=== PATIENT | male | born 1975 | race Caucasian/White ===

== ENCOUNTER 2020-09-17 12:22 | Outpatient (CLI) | payer OTHER, SELFPAY ==
--- NOTE | ~2020-09-17 | XR_ITS ---
XR abdomen/kub 1V DATE: 09/17/2020 12:46 INDICATION: Left-sided abdominal pain. Hematuria. TECHNIQUE: AP projection, 2 views COMPARISON: None FINDINGS: There is an approximately 4 mm calcification overlying the expected position of the distal left ureter or left ureterovesical junction, likely a urinary tract calculus, particularly given the history of left-sided abdominal pain and hematuria. No other significant abnormal calcification is noted. The psoas shadows are intact. There is mild enlargement of the left renal silhouette compared to the right, likely due to left urinary tract obstruction. No evidence of bowel obstruction. IMPRESSION: Probable 4 mm distal left ureteral or ureterovesical junction calcified calculus Reviewed, dictated and finalized at [facility]. Reviewed, dictated and finalized at location A. IMPRESSION: Probable 4 mm distal left ureteral or ureterovesical junction calci fied calculus
== END 2020-09-17 12:23 | disposition home or self-care (01) ==
PROVIDERS: PCP Internal Medicine; Visit Provider Internal Medicine
DX: N39.3 Stress incontinence (female) (male) (principal); R31.9 Hematuria, unspecified
CPT/HCPCS: 74018; 87086

== ENCOUNTER 2020-09-22 14:17 | Outpatient (CLI) | payer OTHER, SELFPAY ==
--- NOTE | ~2020-09-22 | CT_ITS ---
EXAMINATION: CT abdomen pelvis wo con DATE: 09/22/2020 14:50 INDICATION: Renal stone. TECHNIQUE: Computed tomography (CT) of the abdomen and pelvis was performed without intravenous contr ast. The dose-length product was 955.63 mGy-cm. Automated exposure control and iterative reconstructi on technique were employed. COMPARISON: KUB dated 09/17/2020. FINDINGS: Heart size normal. No significant pleural or pericardial effusion. No significant vascular abnormality. No lymphadenopathy. The liver, spleen, pancreas, adrenal glands and kidneys are unremarkable. There is a 5 mm stone at th e right UVJ without significant hydronephrosis. There is a fat-containing umbilical hernia. No abnorm al pelvic masses or fluid collections. Nonobstructive bowel gas pattern. Mild lumbar spondylosis. IMPRESSION: 1. Calcification measuring 5 mm at the right UVJ which may represent a ureteral stone or recently pas sed bladder stone. No significant hydronephrosis. 2: Fat-containing umbilical hernia. Reviewed, dictated and finalized at location A. IMPRESSION: 1. Calcification measuring 5 mm at the right UVJ which may represent a ureteral stone or recently passed bladder stone. No significant hydronephrosis. 2: Fat-containing umbilical hernia.
== END 2020-09-22 14:18 | disposition home or self-care (01) ==
PROVIDERS: PCP Internal Medicine; Visit Provider Internal Medicine
DX: N20.0 Calculus of kidney (principal); K42.9 Umbilical hernia without obstruction or gangrene
CPT/HCPCS: 74176

== ENCOUNTER 2024-04-19 07:00 | Outpatient (NON) | payer OTHER, SELFPAY | END 2024-04-19 07:01 | disposition home or self-care (01) | LOC: ANHLAB 04-20 10:34 | PROVIDERS: PCP Nurse Practitioner Family; Visit Provider Internal Medicine Gastroenterology | DX: D12.2 Benign neoplasm of ascending colon (principal) | CPT/HCPCS: 88305 ==

== ENCOUNTER 2024-04-19 09:42 | Day surgery (SDC) | payer OTHER, SELFPAY ==
[2024-03-12 09:31] VITALS: BMI 36.3
[2024-04-02 14:08] VITALS: BMI 34.7
[2024-04-19 11:05] VITALS: BP 132/84; PULSE 68; RESP 16; TEMP 36.6; O2SAT 98; BMI 35.1
--- NOTE | 2024-04-19 11:07 | PM.HPGS ---
History of Present Illness History of Present Illness Consent: Risks, benefits, and alternatives have been discussed and questions answered. Patient agrees to proceed with procedure. Chief complaint: Screening for Neoplasm of Colon Narrative: Clemente Poe is a 48 year old male presents for screening colonoscopy. Patient's current weight appetite and bowel movements are normal. Patient denies abdominal pain. He has had no bleeding. He has never had colonoscopy prior to this. Review of Systems Review of Systems: All systems reviewed & are unremarkable except as noted in HPI and below PMFSH Past Medical History Medical History (Updated 04/19/24 @ 11:08 by Art Rodriguez MD) Anxiety Benign essential hypertension COVID-19 05/07(second infection) Hyperlipidemia, unspecified YAMILA (obstructive sleep apnea) Type 2 diabetes mellitus without complication, without long-term current use of insulin Surgical History Surgical History History of surgical removal of lesion History of tonsillectomy Family History Family History Mother Hypertension Father Family history of anemia Social History Social History Smoking status: Never smoker Second hand tobacco smoke exposure: No Alcohol intake: current Drinks per week: 1 Alcohol use details: Social Substance use: never Substance use type: does not use Lack of Transportation: No Lack of Food: Never True Current Housing: I Have Housing Concerned About Future Housing: No Difficulty Paying Gas/Electric Bills: No Difficulty Paying for Meds: No Currently Unemployed: No Education: Bachelor's Degree Difficulty w/ Childcare or Family Care: No Living arrangements: alone Spiritual care concerns: No Meds Home Medications and Allergies Home Medications Medication Instructions Recorded Confirmed Type clotrimazole 1 % topical cream 1 applic topical Q12H #30 grams 11/05/21 04/19/24 Rx acyclovir 5 % topical ointment 1 applic topical 6XD PRN cold 12/31/21 04/19/24 Rx sores 7 days #30 grams acyclovir 400 mg tablet 400 mg PO TID PRN FLARE UP 03/28/23 04/19/24 History tirzepatide 5 mg/0.5 mL 5 mg (0.5 mL) subcut WEEKLY #6 mL 12/07/23 04/19/24 Rx subcutaneous pen injector (Frederickunana) amlodipine 5 mg tablet See Rx Instructions .Route 02/23/24 04/19/24 Rx .COMPLEX #90 tabs atorvastatin 20 mg tablet See Rx Instructions .Route 02/23/24 04/19/24 Rx .COMPLEX #90 tabs empagliflozin 25 mg tablet See Rx Instructions .Route 02/23/24 04/19/24 Rx (Jardiance) .COMPLEX #90 tabs losartan 50 mg tablet See Rx Instructions .Route 02/23/24 04/19/24 Rx .COMPLEX #90 tabs metformin 1,000 mg tablet See Rx Instructions .Route 02/23/24 04/19/24 Rx .COMPLEX #180 tabs sodium,potassium,mag sulfates 17.5 See Rx Instructions PO .COMPLEX 03/09/24 04/19/24 Rx gram-3.13 gram-1.6 gram oral soln #354 mL (Suprep Bowel Prep Kit) Allergies Allergy/AdvReac Type Severity Reaction Status Date / Time latex Allergy Mild Rash Verified 04/19/24 10:46 Exam Narrative: Physical exam reveals patient to be alert. Vital signs stable. HEENT exam is unremarkable. Patient is anicteric. Lungs are clear to auscultation and to percussion. Heart is without murmur or extra sounds. Abdomen bowel sounds are present soft nontender with no organomegaly. Digital external rectal exam normal. Assessment and Plan Assessment and plan (1) Screen for colon cancer: Code(s): Z12.11 - Encounter for screening for malignant neoplasm of colon Status: Acute Assessment and Plan: Presents today for screening colonoscopy. Further recommendations may be given after endoscopy.
[2024-04-19] MEDS: LACTATED RINGERS 1,000 ML 150 ML IV CONT (11:09)
--- NOTE | 2024-04-19 11:11 | WPDANESEPPF ---
Anes - Initial Pre Proc Eval Procedure: Operation Date: 04/19/24 12:00 Proposed Procedures p Screening Colonoscopy - Art Rodriguez MD Date/Time: 04/19/24 11:11 Surgeon: Art Rodriguez MD Pre Op Diagnosis: Screening for Neoplasm of Colon Patient Data Age: 48 Gender: M Height: 1.83 m Weight: 117.4 kg Last Vital Signs Temp 36.6 C 04/19/24 11:05 Pulse 68 04/19/24 11:05 Resp 16 04/19/24 11:05 BP 132/84 04/19/24 11:05 Pulse Ox 98 04/19/24 11:05 O2 Del Method Room Air 04/19/24 11:05 Allergies Allergy/AdvReac Type Severity Reaction Status Date / Time latex Allergy Mild Rash Verified 04/19/24 10:46 Home Medications Medication Instructions Recorded Confirmed Type clotrimazole 1 % topical cream 1 applic topical Q12H #30 grams 11/05/21 04/19/24 Rx acyclovir 5 % topical ointment 1 applic topical 6XD PRN cold 12/31/21 04/19/24 Rx sores 7 days #30 grams acyclovir 400 mg tablet 400 mg PO TID PRN FLARE UP 03/28/23 04/19/24 History tirzepatide 5 mg/0.5 mL 5 mg (0.5 mL) subcut WEEKLY #6 mL 12/07/23 04/19/24 Rx subcutaneous pen injector (Trevor) amlodipine 5 mg tablet See Rx Instructions .Route 02/23/24 04/19/24 Rx .COMPLEX #90 tabs atorvastatin 20 mg tablet See Rx Instructions .Route 02/23/24 04/19/24 Rx .COMPLEX #90 tabs empagliflozin 25 mg tablet See Rx Instructions .Route 02/23/24 04/19/24 Rx (Jardiance) .COMPLEX #90 tabs losartan 50 mg tablet See Rx Instructions .Route 02/23/24 04/19/24 Rx .COMPLEX #90 tabs metformin 1,000 mg tablet See Rx Instructions .Route 02/23/24 04/19/24 Rx .COMPLEX #180 tabs sodium,potassium,mag sulfates 17.5 See Rx Instructions PO .COMPLEX 03/09/24 04/19/24 Rx gram-3.13 gram-1.6 gram oral soln #354 mL (Suprep Bowel Prep Kit) Patient hx anesthesia problems: none Family hx anesthesia problems: none Results Review: All pre-operative results and documents have been reviewed as part of the pre-operative evaluation. [facility] Past Medical History Medical History (Updated 04/19/24 @ 11:08 by Art Rodriguez MD) Anxiety Benign essential hypertension COVID-19 12/2(second infection) Hyperlipidemia, unspecified YAMILA (obstructive sleep apnea) Type 2 diabetes mellitus without complication, without long-term current use of insulin Surgical History Surgical History History of surgical removal of lesion History of tonsillectomy Family History Family History Mother Hypertension Father Family history of anemia Social History Social History Smoking status: Never smoker Second hand tobacco smoke exposure: No Alcohol intake: current Drinks per week: 1 Alcohol use details: Social Substance use: never Substance use type: does not use Lack of Transportation: No Lack of Food: Never True Current Housing: I Have Housing Concerned About Future Housing: No Difficulty Paying Gas/Electric Bills: No Difficulty Paying for Meds: No Currently Unemployed: No Education: Bachelor's Degree Difficulty w/ Childcare or Family Care: No Living arrangements: alone Spiritual care concerns: No Anes - Eval Final PreProcedure Day of Procedure 04/19/24 11:11 Patient weight: obese Heart: regular rate and rhythm Lungs: clear to auscultation Airway: Mallampati scale class II Neurological: alert and oriented Last oral intake: >/= 8 hours ASA classification: III Emergent: no Anesthetic plan: proceed Anesthesia type and monitoring: general GIVS and standard monitoring Results Review: All pre-operative results and documents have been reviewed as part of the pre-operative evaluation. Informed Consent: The patient's anesthetic plan and its attendant risks and benefits were discussed with the patient/family/POA. Questions were solicited and answers provided to the satisfaction of the patient/family/POA.
[2024-04-19 12:01] VITALS: BP 95/47; PULSE 69; RESP 18; O2SAT 94
[2024-04-19 12:11] VITALS: BP 98/60; PULSE 67; RESP 16; O2SAT 95
[2024-04-19 12:21] VITALS: BP 105/67; PULSE 65; RESP 15; O2SAT 98
[2024-04-19 12:31] LABS: Glucose Point of Care 84 mg/dl (65-105)
--- NOTE | 2024-04-19 12:58 | WPDANESPN ---
Anes - Prog Note Post-Op Date/Time: 04/19/24 12:58 Cardiovascular status: normal Respiratory status: normal Airway patency: baseline Mental status: baseline Post-Op hydration status: normal Vital Signs: Last Vital Signs Temp 36.6 C 04/19/24 11:05 Pulse 65 04/19/24 12:21 Resp 15 04/19/24 12:21 BP 105/67 04/19/24 12:21 Pulse Ox 98 04/19/24 12:21 O2 Del Method Room Air 04/19/24 12:21 Pain Score (VAS): 0 I/O: Intake & Output 04/18/24 04/19/24 04/19/24 23:59 07:59 15:59 Intake Total 300 Balance 300 04/19/24 11:02 POC Capillary Glucose 84 Post-procedural complaints: none Patient Feedback: Patient satisfied with anesthetic care. Other Findings: Patient vital signs back to baseline. Patient denies nausea and vomiting. Patient's pain under control. Patient OK for discharge.
== END 2024-04-19 12:36 | disposition home or self-care (01) ==
PROVIDERS: PCP Nurse Practitioner Family; Visit Provider Internal Medicine Gastroenterology
PROC: 0DJD8ZZ Inspection of Lower Intestinal Tract, Via Natural or Artificial Opening Endoscopic (ICD-10-PCS; CPT 45378; principal; 2024-04-19 12:00)
DX: Z12.11 Encounter for screening for malignant neoplasm of colon (principal); D12.2 Benign neoplasm of ascending colon; K64.8 Other hemorrhoids
CPT/HCPCS: 45385

== ENCOUNTER 2024-08-25 12:42 | Outpatient (CLI) | payer OTHER, SELFPAY ==
--- NOTE | ~2024-08-25 | MR_ITS ---
EXAMINATION: MR shoulder RT wo con DATE: 08/25/2024 13:47 INDICATION: Right shoulder pain TECHNIQUE: Magnetic resonance imaging (MRI) of the right shoulder was performed without intravenous c ontrast. Sequences included axial PD-weighted FS FSE, coronal oblique PD-weighted FS FSE, coronal obl ique T2-weighted FS FSE, sagittal PD-weighted FS FSE, and sagittal T1-weighted SE. COMPARISON: None. FINDINGS: There is moderate motion artifact on the sagittal T2-weighted sequence. Minimal to mild motion on the remaining sequences. Coracoacromial arch: The acromion undersurface is curved in morphology (type II). The coracoacromial ligament is normal. M ild acromioclavicular osteoarthritis. Rotator cuff: The supraspinatus, infraspinatus and teres minor tendons are normal. Subscapular tendon is normal. No rmal rotator cuff muscle bulk and signal. Biceps tendon, glenoid labrum and glenohumeral cartilage: Long head of the biceps tendon is normal. Glenoid labrum is normal. Glenohumeral cartilage is normal. Fluid: Physiologic amount of fluid in the glenohumeral joint and biceps tendon sheath. No loose osteochondr al bodies. 1.8 x 1.0 x 0.6 cm ganglion cyst arising from the region of the rotator cuff interval and extending cephalad along the posterolateral margin of the neck of the coracoid process. No abnormal f luid signal in the subacromial/subdeltoid bursa consistent with mild bursitis. Bones/other: Normal marrow signal with no edema, fracture or abnormal marrow replacing process. There is thickenin g of the capsule at the axillary recess along with increased soft tissue density at the rotator cuff interval, both findings which can be seen in the setting of capsulitis which is ultimately a clinical diagnosis. IMPRESSION: 1. Thickened capsule at the axillary recess and increased soft tissue at the rotator cuff interval, b oth findings which can be seen in the setting of adhesive capsulitis which is a clinical diagnosis. 2. Ganglion cyst arising from the rotator cuff interval and extending along the posterolateral margin of the coracoid process. Reviewed, dictated and finalized at location B. IMPRESSION: 1. Thickened capsule at the axillary recess and increased soft tissue at the ro tator cuff interval, both findings which can be seen in the setting of adhesive capsulitis which is a clinical diagnosis. 2. Ganglion cyst arising from the rotator cuff interval and extending along the posterolateral margin of the coracoid process.
--- OUTSIDE RECORDS SUMMARY | 2024-08-25 12:45 | XMS_ITS | Clinical Summary ---
Author Organization [facility] Address [address] [place] [id number] Care Team Providers Care Operations And Maintenance Manager Name Role Phone Aletha Reese NP Primary Care Provider [phone] Allergies No known active allergies Medications tirzepatide (Mounjaro) 5 mg/0.5 mL pen injector Inject 5 mg under the skin every 7 days Active atorvastatin (LIPITOR) 20 mg tablet Take 1 tablet (20 mg total) by mouth rn diabetes educator before breakfast Active losartan (COZAAR) 50 mg tablet Take 1 tablet (50 mg total) by mouth daily Active amLODIPine (NORVASC) 5 mg tablet Take 1 tablet (5 mg total) by mouth daily Active empagliflozin (JARDIANCE) 25 mg tablet Take 1 tablet (25 mg total) by mouth daily Active metFORMIN (GLUCOPHAGE) 1,000 mg tablet Take 1 tablet (1,000 mg total) by mouth 2 (two) times a day with meals Active clotrimazole 1 % cream Apply 1 Application topically as needed (Jock itch) Active Active Problems Problem Noted Date Diagnosed Date Keratosis, senilis 10/12/2016 Infectious warts 10/12/2016 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 Lentigo 02/14/2015 Immunizations Immunization Administration Dates Next Due Influenza, Trivalent, Cell C ulture-based MDCK, Preservative Free, Antibiotic Free, Intramuscular 04/12/2024 Family History Medical History Relation Name Comments Hyperlipidemia Father High choleste rol - (Added by TW Conv) Hypertension Father Family history of hypertension - (Added by TW Conv) Kidney disease Maternal Grandmother Famil y history of kidney disease - (Added by TW Conv) Hyperlipidemia Mother High choleste rol - (Added by TW Conv) Hypertension Mother Family history of hypertension - (Added by TW Conv) Relation Name Status Comments Father Maternal Grandmother Mother Social History Tobacco Use Types Packs/Day Years Used Date Smoking Tobacco: Never Smokeless Tobacco: Never Tobacco Cessation:Counseling Given: Not Answered Sex and Gender Information Value Date Recorded Sex Assigned at Not on file 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 Gender Identity Not on file Sexual Orientation Not on file Obstetrics History Plan of Treatment Health Maintenance Due Date Last Done Comments Colon Cancer Screening-Colonoscopy 1975 Depression Screening 1975 Hepatitis C Screening 1975 DTaP/Tdap/Td Vaccine (1 - Tdap) 09/30/1986 Hepatitis B Screening 09/30/1993 Regular Well Visit/Exam 18-64 09/30/1993 Covid-19 Vaccine ( season) 2024 03/22/2023, 05/08/2021, 07/11/2020, Additional history exists Influenza Vaccine Completed 04/12/2024 Pneumococcal vaccine <65 Aged Out No longer eligible based on patient's age to complete this topic [place] [address] [employer] Care Teams Operations And Maintenance Manager Relationship Specialty Start Date End Date Aletha Reese NP [address] [facility] [address] [place] [address] PCP - General Nurse Practitioner 04/17/24
--- OUTSIDE RECORDS SUMMARY | 2024-08-25 12:45 | XMS_ITS | Referral Summary ---
Author Organization [facility] Address [address] [place] [phone] Care Team Providers Care Chief Arson Division Name Role Phone Aletha Reese NP Primary Care Provider [phone] Allergies No known active allergies Medications tirzepatide (Mounjaro) 5 mg/0.5 mL pen injector Inject 5 mg under the skin every 7 days Active atorvastatin (LIPITOR) 20 mg tablet Take 1 tablet (20 mg total) by mouth geriatric physician before breakfast Active losartan (COZAAR) 50 mg [...] MDCK, Preservative Free, Antibiotic Free, Intramuscular 04/12/2024 Social History Tobacco Use Types Packs/Day Years Used Date Smoking Tobacco: Never Smokeless Tobacco: Never Tobacco Cessation:Counseling Given: Not Answered Sex and Gender Information Value Date Recorded Sex Assigned at Not on file 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
== END 2024-08-25 12:43 | disposition home or self-care (01) ==
PROVIDERS: PCP Nurse Practitioner Family; Visit Provider Nurse Practitioner Family
DX: M25.511 Pain in right shoulder (principal)
CPT/HCPCS: 73221

== ENCOUNTER 2025-02-19 08:53 | Outpatient (CLI) | payer OTHER, SELFPAY ==
--- OUTSIDE RECORDS SUMMARY | 2025-02-19 10:01 | XMS_ITS | Clinical Summary ---
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 Gender Identity Not on file Sexual Orientation Not on file Obstetrics History Plan of Treatment Health Maintenance Due Date Last Done Comments Colon Cancer Screening-Colonoscopy 1975 Depression Screening 1975 Hepatitis C Screening 1975 DTaP/Tdap/Td Vaccine (1 - Tdap) 09/30/1986 Hepatitis B Screening 09/30/1993 Regular Well Visit/Exam 18-64 09/30/1993 Covid-19 Vaccine ( season) 2025 03/22/2023, 05/08/2021, 07/11/2020, Additional history exists Influenza Vaccine (#1) 2025 04/12/2024 Pneumococcal vaccine <65 Aged Out No longer eligible based on patient's age to complete this topic Insurance [address] [employer]YE[employer] H[employer]/PPO Address: [facility] [address] [place] [address] [employer] H[employer]/PPO Address: [address] [address] Care Teams Locomotive Repairer Diesel Relationship Specialty Start Date End Date Aletha Reese NP [address] [place] [address] PCP - General Nurse Practitioner 04/17/24
--- NOTE | 2025-03-12 15:04 | WPDHOMESLEEP ---
Sleep Study - Home Unattended Date of Study: 02/19/25 Ordering Provider: Aletha Reese APRN Interpreting Provider: Jennifer Teague, DO Home Sleep Study Type: Watch ELSI Height: 1.83 m Weight: 118.841 kg Body Mass Index: 35.5 Neck Circumference (inches): 17.5 [place]: 10 Reason for Sleep Study Daytime hypersomnia Sleep History The patient is a 49-year-old male that had a sleep study ordered by his primary care for evaluation of sleep apnea. The patient occasionally awakens from sleep short of breath. He rarely awakens at night with heartburn, belching or cough. He frequently snores but is rarely loud enough that others complain. He frequently has trouble sleeping when he has a cold. He rarely wakes up gasping for air throughout the night. He occasionally has breathing problems at night observed by himself or others. He rarely sweats excessively at night. He denies having heart palpitations or irregular heartbeats during the night. He occasionally falls asleep during the day but rarely while driving. He denies sleep paralysis and cataplexy. He denies having trouble at school or work due to sleepiness. He rarely experiences vivid dreamlike scenes upon awakening or falling asleep. He denies feeling afraid of going asleep. He denies having nightmares. He rarely remembers his dreams. He frequently has thoughts racing through his mind. He rarely feels sad or depressed. He occasionally has anxiety. He rarely has muscular tension. He rarely notices parts of his body jerk. He denies kicking during the night. He denies having crawling and aching feelings in his legs and denies having leg pain during the night. He occasionally grinds his teeth during sleep but rarely awakens with morning jaw pain. He is rarely bothered by pain during the day and never awakened by pain during the night. He rarely wakes up feeling stiff in the morning. He rarely wakes up with sore or achy muscles. He rarely wakes up with pain in the neck, spine and other joints. He goes to bed at 10:00 p.m. on weekdays and between 11:00 p.m. to midnight on the weekends. It takes him a few minutes to fall asleep. He wakes up 1-2 times throughout the night to urinate and he can take 5-60 minutes to fall back asleep. He wakes up at 6:30 a.m. on weekdays and at 7:30 a.m. on the weekends. He typically gets 6-7 hours of sleep per night. He will stay in bed for 5-10 minutes after waking up in the morning. He currently lives with his and 2 children. Denies consuming any caffeinated beverages within 2 hours of bedtime. He denies engaging in physical exercise before bedtime. He will watch television before falling asleep. He denies taking naps in afternoon with the evening. He consumes 1 caffeinated beverage 3 times per week. He denies tobacco use. He consumes 5-6 alcoholic beverages during the weekend. He denies recreational drug use. [facility] Past Medical History Medical History (Updated 03/12/25 @ 15:11 by Jennifer Teague DO) YAMILA (obstructive sleep apnea) COVID-19 05/07(second infection) Anxiety Benign essential hypertension Hyperlipidemia, unspecified Type 2 diabetes mellitus without complication, without long-term current use of insulin Surgical History Surgical History History of surgical removal of lesion History of tonsillectomy Family History Family History Mother Hypertension Father Family history of anemia Social History Social History Smoking status: Never smoker Second hand tobacco smoke exposure: No Alcohol intake: current Drinks per week: 1 Alcohol use details: Social Substance use: never Substance use type: does not use Lack of Transportation: No Lack of Food: Never True Current Housing: I Have Housing Concerned About Future Housing: No Difficulty Paying Gas/Electric Bills: No Difficulty Paying for Meds: No Currently Unemployed: No Education: Bachelor's Degree Difficulty w/ Childcare or Family Care: No Living arrangements: alone Occupation/Education: occupation Gender identity (if verbalized by the patient): Male Spiritual care concerns: No Agree to blood products: Yes Medications Home Medications ?Medication ?Instructions ?Recorded ?Confirmed ?Type amlodipine 5 mg tablet See Rx Instructions .Route 11/22/24 02/05/25 Rx .COMPLEX #90 tabs atorvastatin 20 mg tablet See Rx Instructions .Route 11/22/24 02/05/25 Rx .COMPLEX #90 tabs acyclovir 400 mg tablet 400 mg PO TID PRN FLARE UP #90 tabs 12/17/24 02/05/25 Rx clotrimazole 1 % topical cream 1 applic topical Q12H #30 grams 12/17/24 02/05/25 Rx losartan 50 mg tablet See Rx Instructions .Route 12/17/24 02/05/25 Rx .COMPLEX #90 tabs metformin 1,000 mg tablet See Rx Instructions .Route 12/17/24 02/05/25 Rx .COMPLEX #180 tabs tirzepatide 7.5 mg/0.5 mL 7.5 mg (0.5 mL) subcut WEEKLY #6 mL 12/17/24 02/05/25 Rx subcutaneous pen injector naproxen 500 mg tablet 500 mg PO BID #60 tabs 02/05/25 02/05/25 Rx Sleep Procedure The sleep study was completed using [id number] DigitalT a technically adequate device with seven channels: peripheral arterial tone, actigraphy, body position, snore, respiratory movement, pulse oximetry, sleep staging, and heart rate. Prior to using the device, the patient received verbal and written instructions for its application and was provided with the help desk phone number for additional telephonic instruction with 24-hour availability of qualified personnel to answer questions. The study was scored using CMS guidelines. Sleep Architecture The total recording time is 8 hrs, 37 min. The total sleep time is 7 hrs, 43 min. Sleep latency is 6 minutes. REM latency is 86 minutes. The patient had 10 episodes of waking. Sleep architecture shows 14.5% deep sleep, 66.3% light sleep, and (as % Total Sleep Time) showed NREM (Light 66.3%; Deep 14.5%), and a 19.2% stage REM. The patient spent 56.6% of total sleep time in the supine position. Sleep efficiency was 89.56. Respiratory Analysis The overall AHI (pAHI 4%:) is 19.1. The overall AHI (pAHI 3%:) is 25.5. The central AHI is 5.8. The AHI was 21.6 in NREM and 41.2 in REM sleep. The AHI was 37.3 in Supine and 9.9 in Non-supine sleep. Percent of Roderick Matias respirations is 0.0. Oximetry Data The oxygen desaturation index (SUMMER 4%:) is 15.1. The mean saturation is 94%, and the lowest saturation is 78%. Time spent with saturation < 88% is 4.6 minutes. Snoring Profile Snoring average intensity is 41 dB. The patient snored above 45 decibels for 23.3 minutes, 5.0% of sleep time. Cardiac Profile The average pulse rate is beats per 68 minutes. The lowest pulse rate is 56 bpm. The highest pulse rate reported is 103 bpm. Atrial fibrillation was not detected. Premature beats occur <0.1 per minute. Assessment and Plan Assessment and Plan (1) YAMILA (obstructive sleep apnea): Code(s): G47.33 - Obstructive sleep apnea (adult) (pediatric) Status: Acute Assessment and Plan: The patient had an overall AHI of 19.1 with desaturation down to 78%. This is consistent with moderate sleep apnea. The patient had a central apnea index of 5.8, which is elevated (normal <5). The patient is not an ideal candidate for AutoPAP. AutoPAP can increase the frequency and severity of central apneas. I recommend that the patient have a CPAP Titration with the use of a hypnotic to ensure we obtain enough sleep data and find an optimal pressure setting. The patient needs an echocardiogram to rule out cardiogenic causes for an elevated central index. Data The data obtained during this sleep study is adequate for interpretation. Certification This sleep study has been reviewed by a board certified sleep medicine physician.
[2025-03-13 13:08] VITALS: BMI 35.5
== END 2025-02-20 14:23 | disposition home or self-care (01) ==
LOC: ANHCSM 08:57
PROVIDERS: PCP Nurse Practitioner Family; Visit Provider Nurse Practitioner Family
DX: G47.33 Obstructive sleep apnea (adult) (pediatric) (principal); I10 Essential (primary) hypertension
CPT/HCPCS: 95800

== ENCOUNTER 2025-04-16 10:07 | Outpatient (CLI) | payer OTHER, SELFPAY ==
--- OUTSIDE RECORDS SUMMARY | 2025-04-16 10:39 | XMS_ITS | Clinical Summary ---
Author Organization [facility] Address [address] [place] [address] Care Team Providers Care Instrument Assembly Supervisor Name Role Phone Aletha Reese NP Primary Care Provider [phone] Allergies No known active allergies Medications * This document contains information received from the source organization and may not represent a complete record from that organization. tirzepatide (Mounjaro) 5 mg/0.5 mL pen injector Inject 5 mg under the skin every 7 days Active atorvastatin (LIPITOR) 20 mg tablet Take 1 tablet (20 mg total) by mouth truck technician before breakfast Active losartan (COZAAR) 50 mg [...] ulture-based MDCK, Preservative Free, Antibiotic Free, Intramuscular 03/07/2025,04/12/2024 Family History Medical History Relation Name Comments [...] on file Legal Sex Male 4:40 AM [employer] Gender Identity Not on file Sexual Orientation Not on file Plan of Treatment Health Maintenance Due Date Last Done Comments Colon Cancer Screening-Colonoscopy 1975 Depression Screening 1975 Hepatitis C Screening 1975 DTaP/Tdap/Td Vaccine (1 - Tdap) 09/30/1986 Hepatitis B Screening 09/30/1993 Regular Well Visit/Exam 18-64 09/30/1993 Covid-19 Vaccine ( season) 2025 03/22/2023, 05/08/2021, 07/11/2020, Additional history exists Influenza Vaccine Completed 03/07/2025, 04/12/2024 Pneumococcal vaccine <65 Aged Out No longer eligible based on patient's age to complete [place] [address] [facility] [facility] [address] [employer] Care Teams Instrument Assembly Supervisor Relationship Specialty Start Date End Date WinterAletha NP [address] [place] [address] PCP - General Nurse Practitioner 04/17/24
--- NOTE | 2025-05-13 15:09 | WPDSLEEPSTUD ---
Sleep Study Date of Study: 04/16/25 Ordering Provider: Aletha Reese APRN Interpreting Physician: Alecia Boles MD Sleep Study Type: CPAP Titration Height: 1.85 m Weight: 113.398 kg Body Mass Index: 33.0 Neck Circumference (inches): 18 [place]: 10 Reason for Sleep Study 02/19/2025 home sleep test showing moderate obstructive sleep apnea, AHI 19.1, desaturaiton to 78%, central AHI 5.58 Pateint returns for a full night CPAP titraiton. Sleep History This sleep history is from his 02/19/2025 home sleep test. Clemente Poe is 49-year-old man with hypersomnia who had a home sleep test 02/19/2025. This showed moderate obstructive sleep apnea with an overall AHI 19.1, mild central sleep apnea central AHI 5.8, desaturation down to 78%. He is here for a CPAP titration. I do not see an echo which was recommended when he had an elevation in his central apnea index. He occasionally awakens from sleep short of breath. He rarely awakens at night with heartburn, belching or cough. He frequently snores but is rarely loudly enough that others complain. He frequently has trouble sleeping when he has a cold. He rarely wakes up gasping for air in the night. He occasionally has breathing problems at night observed by others. He rarely sweats excessively at night. He denies having heart palpitations or irregular heartbeats during the night. He occasionally falls asleep during the day but rarely while driving. He denies sleep paralysis and cataplexy. He denies having trouble at school or work due to sleepiness. He rarely experiences vivid dreamlike scenes upon awakening or falling asleep. He denies feeling afraid of going asleep. He denies having nightmares. He rarely remembers his dreams. He frequently has thoughts racing through his mind. He rarely feels sad or depressed. He occasionally has anxiety. He rarely has muscular tension. He rarely notices parts of his body jerk. He denies kicking during the night. He denies having crawling and aching feelings in his legs and denies having leg pain during the night. He occasionally grinds his teeth during sleep but rarely awakens with morning jaw pain. He is rarely bothered by pain during the day and never awakened by pain during the night. He rarely wakes up feeling stiff in the morning. He rarely wakes up with sore or achy muscles. He rarely wakes up with pain in the neck, spine and other joints. He goes to bed at 10:00 p.m. on weekdays and between 11:00 p.m. to midnight on the weekends. It takes him a few minutes to fall asleep. He wakes up 1-2 times throughout the night to urinate and he can take 5-60 minutes to fall back asleep. He wakes up at 6:30 a.m. on weekdays and at 7:30 a.m. on the weekends. He typically gets 6-7 hours of sleep per night. He will stay in bed for 5-10 minutes after waking up in the morning. He currently lives with his and 2 children. Denies consuming any caffeinated beverages within 2 hours of bedtime. He denies engaging in physical exercise before bedtime. He will watch television before falling asleep. He denies taking naps in afternoon with the evening. He consumes 1 caffeinated beverage 3 times per week. He denies tobacco use. He consumes 5-6 alcoholic beverages during the weekend. He denies recreational drug use. [facility] Past Medical History Medical History YAMILA (obstructive sleep apnea) COVID-19 05/07(second infection) Anxiety Benign essential hypertension Hyperlipidemia, unspecified Type 2 diabetes mellitus without complication, without long-term current use of insulin Surgical History Surgical History History of surgical removal of lesion History of tonsillectomy Family History Family History Mother Hypertension Father Family history of anemia Social History Social History Smoking status: Never smoker Second hand tobacco smoke exposure: No Alcohol intake: current Drinks per week: 1 Alcohol use details: Social Substance use: never Substance use type: does not use Lack of Transportation: No Lack of Food: Never True Current Housing: I Have Housing Concerned About Future Housing: No Difficulty Paying Gas/Electric Bills: No Difficulty Paying for Meds: No Currently Unemployed: No Education: Bachelor's Degree Difficulty w/ Childcare or Family Care: No Living arrangements: alone Occupation/Education: occupation Gender identity (if verbalized by the patient): Male Spiritual care concerns: No Agree to blood products: Yes Medications Home Medications ?Medication ?Instructions ?Recorded ?Confirmed ?Type amlodipine 5 mg tablet See Rx Instructions .Route 11/22/24 02/05/25 Rx .COMPLEX #90 tabs atorvastatin 20 mg tablet See Rx Instructions .Route 11/22/24 02/05/25 Rx .COMPLEX #90 tabs acyclovir 400 mg tablet 400 mg PO TID PRN FLARE UP #90 tabs 12/17/24 02/05/25 Rx clotrimazole 1 % topical cream 1 applic topical Q12H #30 grams 12/17/24 02/05/25 Rx losartan 50 mg tablet See Rx Instructions .Route 12/17/24 02/05/25 Rx .COMPLEX #90 tabs metformin 1,000 mg tablet See Rx Instructions .Route 12/17/24 02/05/25 Rx .COMPLEX #180 tabs tirzepatide 7.5 mg/0.5 mL 7.5 mg (0.5 mL) subcut WEEKLY #6 mL 12/17/24 02/05/25 Rx subcutaneous pen injector naproxen 500 mg tablet 500 mg PO BID #60 tabs 02/05/25 02/05/25 Rx Sleep Procedure A full CPAP polysomnogram using the [employer] multi-channel system recorded the standard physiologic parameters including EEG, EOG, submentalis EMG, anterior tibialis EMG, EKG, body position, nasal and oral airflow using nasal pressure sensor and thermistor. Respiratory parameters of chest and abdominal movements were recorded with Respiratory Inductance Plethysmography belts. Oxygen saturation was recorded by pulse oximetry. Video monitoring was also performed. Sleep stages, periodic limb movements, and EEG arousals were scored in 30 second epochs according to the criteria of the AASM Scoring Manual. The Apnea-Hypopnea Index was calculated using CMS guidelines for definition of hypopnea while scoring respiratory events. The patient was started on CPAP using a medium ResMed AirFit N30 i nasal mask and heated humidity, initial pressure was CPAP 5 cm, titrated in 1 cm increments up to CPAP 14 cm. Patient had supine REM at CPAP 13 and 14 cm. At CPAP 13 cm, the patient spent 66.5 minutes in bed, 2.5 minutes awake, 44.5 minutes in non-REM, 19.5 minutes in REM. Sleep efficiency was 96.2%. The residual apnea-hypopnea index was 2.8, this was 2-3 hypopneas. The lowest saturation was 93%. The patient had supine REM at this setting. At CPAP 14 cm, sleep was very fragmented, constant shifts between wake, stage I and stage II. Sleep Architecture The total recording time was 456.6 minutes. The total sleep time was 411.5 minutes. Sleep latency was 2.9 minutes. REM latency was 75.0 minutes. Sleep efficiency was 90.1%. The patient had 35 awakenings for an awakening index of 5.1. Wake after Sleep Onset time was 42.5 minutes. The patient spent 36.5 minutes, 8.9% of total sleep time in Stage N1. The patient spent 245.0 minutes, 59.5% in Stage N2. The patient spent 52.5 minutes, 12.8% in Stage N3. The patient spent 77.5 minutes, 18.8% in Stage REM. Respiratory Analysis The patient had 31 hypopneas, no obstructive apneas, 1 mixed apnea, and no central apneas for an overall Apnea Hypopnea Index of 4.7 events per hour. The REM Apnea Hypopnea Index was 11.6. The NREM Apnea Hypopnea Index was 3.1. The patient had a Central Apnea Hypopnea Index of 0. There were no Respiratory Effort Related Arousals. The Respiratory Disturbance Index is 10.5 events per hour. There was no evidence of Roderick-Matias Respirations. Arousals There were 197 total arousals for an arousal index of 28.7. There were 72 spontaneous arousals for an index of 10.5. There were 21 arousals due to respiratory events for an index of 3.1. There were 61 arousals due to periodic limb movements for an index of 8.9. There were 44 arousals due to isolated limb movements for an index of 6.4 Periodic Limb Movements The patient had 114 isolated limb movements with an index of 16.6. The patient had 196 periodic limb movements with index of 28.6. Patient had a total of 310 limb movements with a total limb movement index of 45.2. Oximetry Data The patient had an average oxygen saturation of 94.8% in sleep with a minimum oxygen saturation of 88% and a maximum oxygen saturation of 99%. The patient had 32 oxygen desaturations that were 4% or greater resulting in an Oxygen Desaturation Index of 4.7. The patient spent 0.1 minutes, 0% of total sleep time with an oxygen saturation below 88%. Snoring Profile Snoring was mild, eliminated at the optimal pressure. Cardiac Profile The EKG showed normal sinus rhythm. The patient had an average pulse rate of 68.5 bpm with a minimum pulse rate of 57 bpm and a maximum pulse rate of 99 bpm. No arrhythmias noted. EEG Profile Unremarkable, no evidence of seizures. Assessment and Plan Assessment and Plan (1) YAMILA (obstructive sleep apnea): Code(s): G47.33 - Obstructive sleep apnea (adult) (pediatric) Status: Acute Assessment and Plan: This full night CPAP titration on April 16, 2025 showed an optimal pressure of CPAP 13 cm using a medium ResMed AirFit N30 i nasal mask and heated humidity. At CPAP 13 cm, he spent 66.5 minutes in bed, 2.5 minutes awake, 44.5 minutes in non-REM, 19.5 minutes in REM. Sleep efficiency was 96.2%. The residual apnea-hypopnea index was 2.8, he had 3 hypopneas. The lowest saturation was 93%. The patient had supine REM at this setting. The patient should be prescribed this ResMed equipment as well as tubing, filters and reservoir. This should be used with all episodes of sleep. Compliance should be reviewed within 31-90 days of starting therapy for usage greater than 4 hours per night greater than 70% of the nights. The patient should be asked about symptoms such as excessive daytime sleepiness, quality of sleep, decreased nocturia, increased mental functioning such as memory, mood, and concentration. He had excessive numbers of limb movements, however a small fration of leg movements led to arousals during sleep. He has no complaints of sleep interruptions due to kicking or feelings of uncomfortable sensations in his legs at night. He clinically does not have problems with leg movements. These leg movements seen during this titration may be due to the titration at self, CPAP kick. I would not recommend any intervention at this point, and bees excessive limb movements may disappear when he acclimate to PAP over the next month or 2 months. BMI is 33. Weight management is advised. Clinical data suggests that weight loss of 10% can reduce the severity of respiratory events and snoring and improve AHI by as much as 25%. Data The data obtained during this sleep study is adequate for interpretation. Certification This sleep study has been reviewed by a board certified sleep medicine physician.
[2025-05-13 17:35] VITALS: BMI 33.0
== END 2025-04-17 07:09 | disposition home or self-care (01) ==
LOC: ANHCSM 10:10
PROVIDERS: PCP Nurse Practitioner Family; Visit Provider Nurse Practitioner Family
DX: G47.30 Sleep apnea, unspecified (principal); G47.33 Obstructive sleep apnea (adult) (pediatric)
CPT/HCPCS: 95811